=== PATIENT | male | born 2000 | race African-American/Black ===

== ENCOUNTER 2022-10-06 19:25 | Emergency (ER) | payer OTHER ==
[~2022-10-06] VITALS: Ht 167.6 cm; Wt 84.5 kg
[2022-10-06] MEDS ORDERED: CEPH500C PO (19:31)
[2022-10-06 22:30] LABS: GC DNA AMPLIFICATION NEGATIVE (NEGATIVE)
[2022-10-06] MEDS ORDERED: DOXYCYCLINE HYCLATE 100MG TABLET PO ONE (23:15)
[2022-10-06] MEDS ORDERED: DOXY100C3 PO (23:20)
[2022-10-06 23:32] VITALS: BP 128/88; TEMP 97.3; O2SAT 98
== END 2022-10-06 23:33 | disposition home or self-care (01) ==
LOC: M ED 19:25
DX: A53.9 Syphilis, unspecified (principal); Z79.899 Other long term (current) drug therapy